=== PATIENT | female | born 1990 | race Caucasian/White ===

== ENCOUNTER 2017-05-21 12:02 | Outpatient (CLI) | payer MEDICAID ==
[~2017-05-21] VITALS: Ht 160 cm; Wt 69.5 kg
[2017-05-21 12:14] VITALS: BP 146/83
[2017-05-21 12:39] LABS: BASOPHILS # (AUTO) 0.03 x10^3/uL (0-0.1); BASOPHILS % (AUTO) 0 % (0-1); EOSINOPHILS # (AUTO) 0.03 x10^3/uL (0-0.4); EOSINOPHILS % (AUTO) 0 % (1-7); LYMPHOCYTES # (AUTO) 1.91 x10^3/uL (1-3.4); LYMPHOCYTES % (AUTO) 20 % (22-44); MD NO; MEAN CORPUSCULAR HEMOGLOBIN 31.5 pg (27.0-34.8); MEAN CORPUSCULAR VOLUME 92.7 fL (80-100); MEAN PLATELET VOLUME 8.1 fL (7.4-10.4); MONOCYTES % (AUTO) 4 % (2-9); NEUTROPHILS # (AUTO) 7.07 x10^3/uL (1.8-6.8); NEUTROPHILS % (AUTO) 75 % (42-75); PLATELET COUNT 204 x10^3/uL (130-400); RED BLOOD COUNT 4.07 x10^6/uL (3.82-5.3); RED CELL DISTRIBUTION WIDTH 13.5 % (9.6-15.2)
[2017-05-21 12:49] LABS: MICROSCOPIC INDICATED
[2017-05-21 12:52] LABS: ALBUMIN 2.8 g/dL (3.4-5.0); ANION GAP 7 mmol/L (5-15); CALCIUM 9.3 mg/dL (8.5-10.1); CHLORIDE 111 mmol/L (98-107)
[2017-05-21 12:56] LABS: ALANINE AMINOTRANSFERASE 14 U/L (12-78); ALKALINE PHOSPHATASE 215 U/L (45-117); BILIRUBIN,TOTAL 0.2 mg/dL (0.2-1.0); CREATININE 0.81 mg/dL (0.55-1.02); TOTAL PROTEIN 6.4 g/dL (6.4-8.2)
[2017-05-21] MEDS ORDERED: FAMOTIDINE 20 MG TABLET ONE (13:12)
[2017-05-21 13:27] LABS: CREATININE,URINE RANDOM < 13.00 mg/dL; PROTEIN/CREATININE RATIO,URINE < 385 (0-200); TOTAL PROTEIN,URINE RANDOM < 5 mg/dL (0-12)
[2017-05-21] MEDS ORDERED: FAMOTIDINE 20 MG TABLET PO ONE (13:30)
== END 2017-05-21 15:08 | disposition home or self-care (01) ==
LOC: LDOP 12:02
PROVIDERS: ATTEND Obstetrics & Gynecology
DX: O13.3 Gestational [pregnancy-induced] hypertension without significant proteinuria, third trimester (principal); Z3A.36 36 weeks gestation of pregnancy
CPT/HCPCS: 36415; 59025; 76815; 80053; 81001; 82570; 84156; 84550; 85025; 99201; G0463

== ENCOUNTER 2017-05-26 05:22 | Inpatient (IN) | payer MEDICAID ==
[~2017-05-26] VITALS: Ht 160 cm; Wt 70.0 kg
[2017-05-26] MEDS ORDERED: OXYTOCIN 30U/ 0.9% NaCL 500ML 500 ML IV PRN (05:29)
[2017-05-26] MEDS: D5%-LACTATED RINGERS 1,000 ML IV SCH ×3 (05:29→21:29)
[2017-05-26] MEDS ORDERED: OXYTOCIN 30U/ 0.9% NaCL 500ML 500 ML IV ONE (05:29)
[2017-05-26] MEDS ORDERED: ONDANSETRON 2MG/ML, 2ML IVPush PRN ×2 (05:30→15:30)
[2017-05-26] MEDS ORDERED: FENTANYL PF 100 MCG/2ML IVPush PRN (05:30)
[2017-05-26] MEDS ORDERED: FENTANYL PF 100 MCG/2ML IV PRN (05:30)
[2017-05-26] MEDS ORDERED: CALCIUM CARBONATE 500 MG TAB.CHEW PO PRN (05:30)
[2017-05-26] MEDS ORDERED: MISOPROSTOL 25 MCG TABLET VG PRN (05:30)
[2017-05-26 05:52] LABS: BASOPHILS # (AUTO) 0.07 x10^3/uL (0-0.1); BASOPHILS % (AUTO) 1 % (0-1); EOSINOPHILS # (AUTO) 0.05 x10^3/uL (0-0.4); EOSINOPHILS % (AUTO) 1 % (1-7); LYMPHOCYTES # (AUTO) 2.45 x10^3/uL (1-3.4); LYMPHOCYTES % (AUTO) 27 % (22-44); MD NO; MEAN CORPUSCULAR HGB CONC 33.9 g/dL (32.4-35.8); MEAN CORPUSCULAR VOLUME 94.2 fL (80-100); MEAN PLATELET VOLUME 8.6 fL (7.4-10.4); MONOCYTES # (AUTO) 0.41 x10^3/uL (0.2-0.8); MONOCYTES % (AUTO) 5 % (2-9); NEUTROPHILS # (AUTO) 5.99 x10^3/uL (1.8-6.8); NEUTROPHILS % (AUTO) 67 % (42-75); PLATELET COUNT 204 x10^3/uL (130-400); RED BLOOD COUNT 4.07 x10^6/uL (3.82-5.3); RED CELL DISTRIBUTION WIDTH 13.7 % (9.6-15.2)
[2017-05-26] MEDS ORDERED: OXYTOCIN 30U/ 0.9% NaCL 500ML 500 ML ONE ×2 (05:59→20:23)
[2017-05-26] MEDS ORDERED: MISOPROSTOL 25 MCG TABLET ONE (06:01)
[2017-05-26 06:47] LABS: MICROSCOPIC INDICATED
[2017-05-26] MEDS: LACTATED RINGERS 1,000 ML IV SCH ×5 (13:29→23:21)
[2017-05-26] MEDS ORDERED: FENTANYL PF 100 MCG/2ML ONE (14:21)
[2017-05-26] MEDS ORDERED: BUPIVACAINE 0.25% ONE ×2 (14:21→14:24)
[2017-05-26] MEDS ORDERED: FENTANYL/BUPIV./NS/PF 250 ML EPIDCONT ONE ×2 (14:22→14:24)
[2017-05-26] MEDS ORDERED: LIDOCAINE/PF 1.5%-EPI 1:200K, 30ML ONE (14:24)
[2017-05-26] MEDS ORDERED: TERBUTALINE 1 MG/ML, 1ML ONE ×2 (15:02→16:46)
[2017-05-26] MEDS: TERBUTALINE 1 MG/ML, 1ML IVPush PRN ×2 (15:07→16:47)
[2017-05-26] MEDS: FENTANYL/BUPIV./NS/PF 250 ML EPIDCONT SCH (15:21)
[2017-05-26] MEDS ORDERED: EPHEDRINE 50 MG/ML, 1ML IVPush PRN (15:30)
[2017-05-26] MEDS ORDERED: LACTATED RINGERS 1,000 ML IVBOLUS PRN (15:30)
[2017-05-26] MEDS ORDERED: LACTATED RINGERS 1,000 ML INTUTE PRN (16:35)
[2017-05-26] MEDS ORDERED: LACTATED RINGERS 1,000 ML INTUTE SCH (17:30)
[2017-05-26] MEDS: OXYTOCIN 30U/ 0.9% NaCL 500ML 500 ML IV SCH (20:04)
[2017-05-26] MEDS ORDERED: CARBOPROST TROMETHAMINE 250 MCG/ML, 1ML IM PRN (20:30)
[2017-05-26] MEDS ORDERED: MISOPROSTOL 200 MCG TABLET PR PRN (20:30)
[2017-05-26] MEDS ORDERED: ONDANSETRON 2MG/ML, 2ML IV PRN (20:30)
[2017-05-26] MEDS ORDERED: OXYcodone/APAP 5/325MG TABLET PO PRN ×2 (20:30)
[2017-05-26] MEDS ORDERED: ACETAMINOPHEN 325 MG TABLET PO PRN (20:30)
[2017-05-26] MEDS ORDERED: METOCLOPRAMIDE 5 MG/ML, 2ML IV PRN (20:30)
[2017-05-26 21:25] VITALS: BP 131/79
[2017-05-26] MEDS: IBUPROFEN 600 MG TABLET PO PRN (21:45)
[2017-05-26 22:30] VITALS: BP 132/80
[2017-05-27 01:44] VITALS: BP 118/68
[2017-05-27 03:03] LABS: BASOPHILS # (AUTO) 0.06 x10^3/uL (0-0.1); BASOPHILS % (AUTO) 0 % (0-1); EOSINOPHILS % (AUTO) 0 % (1-7); LYMPHOCYTES # (AUTO) 1.56 x10^3/uL (1-3.4); LYMPHOCYTES % (AUTO) 11 % (22-44); MD NO; MEAN CORPUSCULAR HEMOGLOBIN 31.5 pg (27.0-34.8); MEAN CORPUSCULAR HGB CONC 33.9 g/dL (32.4-35.8); MEAN PLATELET VOLUME 7.9 fL (7.4-10.4); MONOCYTES # (AUTO) 0.59 x10^3/uL (0.2-0.8); MONOCYTES % (AUTO) 4 % (2-9); NEUTROPHILS # (AUTO) 11.55 x10^3/uL (1.8-6.8); NEUTROPHILS % (AUTO) 84 % (42-75); PLATELET COUNT 157 x10^3/uL (130-400); RED BLOOD COUNT 3.31 x10^6/uL (3.82-5.3); RED CELL DISTRIBUTION WIDTH 13.3 % (9.6-15.2)
[2017-05-27] MEDS: IBUPROFEN 600 MG TABLET PO PRN ×3 (03:37→18:09)
[2017-05-27 04:00] VITALS: BP 119/71
[2017-05-27] MEDS: LACTATED RINGERS 1,000 ML IV SCH ×5 (05:29→21:29)
[2017-05-27] MEDS: D5%-LACTATED RINGERS 1,000 ML IV SCH ×3 (05:29→21:29)
[2017-05-27] MEDS: OXYTOCIN 30U/ 0.9% NaCL 500ML 500 ML IV SCH ×2 (06:04→16:04)
[2017-05-27 07:40] VITALS: BP 122/81
[2017-05-27] MEDS: DOCUSATE 100 MG CAPSULE PO PRN ×2 (10:21→21:47)
[2017-05-27] MEDS: PRENATAL VIT/IRON/FA 1 EACH TABLET PO SCH (10:21)
[2017-05-27 12:30] VITALS: BP 125/41
[2017-05-27] MEDS: FENTANYL/BUPIV./NS/PF 250 ML EPIDCONT SCH (15:21)
[2017-05-27 17:00] VITALS: BP 132/82
[2017-05-27 19:45] VITALS: BP 125/74
[2017-05-28] MEDS: IBUPROFEN 600 MG TABLET PO PRN ×3 (00:08→12:47)
[2017-05-28 07:30] VITALS: BP 126/77
[2017-05-28] MEDS: PRENATAL VIT/IRON/FA 1 EACH TABLET PO SCH (09:20)
[2017-05-28] MEDS: DOCUSATE 100 MG CAPSULE PO PRN (09:20)
[2017-05-28] MEDS ORDERED: IBUP-1222 PO (10:50)
[2017-05-28] MEDS ORDERED: DOCU-131 PO (10:51)
== END 2017-05-28 16:57 | disposition home or self-care (01) | DRG 775 ==
LOC: LDIP 05:22 → 2NW 21:15
PROVIDERS: ADMIT Obstetrics & Gynecology; ATTEND Obstetrics & Gynecology
PROC: 10E0XZZ Delivery of Products of Conception, External Approach (ICD-10-PCS; principal; 2017-05-26)
PROC: 0KQM0ZZ Repair Perineum Muscle, Open Approach (ICD-10-PCS; 2017-05-26)
PROC: 10907ZC Drainage of Amniotic Fluid, Therapeutic from Products of Conception, Via Natural or Artificial Opening (ICD-10-PCS; 2017-05-26)
PROC: 3E0P7VZ Introduction of Hormone into Female Reproductive, Via Natural or Artificial Opening (ICD-10-PCS; 2017-05-26)
DX: O14.04 Mild to moderate pre-eclampsia, complicating childbirth (principal); O69.81X0 Labor and delivery complicated by cord around neck, without compression, not applicable or unspecified; O70.1 Second degree perineal laceration during delivery; O76 Abnormality in fetal heart rate and rhythm complicating labor and delivery; Z37.0 Single live birth; Z3A.37 37 weeks gestation of pregnancy
CPT/HCPCS: 36415; 81001; 85025; 86850; 86900; J3490; J2590; J3010; J3105; J7120